=== PATIENT | male | born 1950 | race American Indian/Alaskan Native ===

== ENCOUNTER 2022-02-24 18:34 | Emergency (ER) | payer MEDICARE ==
[2022-02-25 09:09] VITALS: BP 157/86
[2022-02-25] MEDS ORDERED: IBUPROFEN 800 MG TAB PO ONE (09:54)
--- NOTE | 2022-02-25 10:00 | Emergency Department Report ---
ED Extremity Problem HPI - General Chief complaint: Pain General Stated complaint: HURT LEG Time Seen by Provider: 02/25/22 09:47 Source: patient Mode of arrival: Ambulatory Limitations: No Limitations - History of Present Illness Initial comments: 71-year male with a past medical history of hypertension and elevated cholesterol (on meds for both) present hospital complaining of left hamstring pain and knee pain for the past 4 days. Patient did have swelling for 1 day to the knee area that has since resolved. Pain is intermittent, aching, worse with ambulation and improved with rest. Patient denies any isolated calf tenderness, chest pain, shortness of breath, history of PE/DVT, or recent travel. Patient denies recent injury but states has been tussling with his grandson recently. Patient reports that pain is minimal at this time. Patient is a non-smoker Severity scale (0 -10): 8 - Related Data Previous Rx's Medication Instructions Recorded Last Taken Type Rivaroxaban [Xarelto Starter Pack] 1 each PO DAILY #1 pack 02/25/22 Unknown Rx Allergies Allergy/AdvReac Type Severity Reaction Status Date / Time No Known Allergies Allergy Verified 02/24/22 20:02 ED Review of Systems ROS: Stated complaint: HURT LEG Other details as noted in HPI Comment: All other systems reviewed and negative ED Past Medical Hx - Past Medical History Previous Medical History?: Yes Hx Hypertension: Yes Additional medical history: Elevated cholesterol - Surgical History Past Surgical History?: No - Social History Smoking Status: Never Smoker Substance Use Type: None - Medications Home Medications: Home Medications Medication Instructions Recorded Confirmed Last Taken Type Rivaroxaban [Xarelto Starter Pack] 1 each PO DAILY #1 pack 02/25/22 Unknown Rx ED Physical Exam - General Limitations: No Limitations - Other Other exam information: General: No acute distress Head: Atraumatic Eyes: normal appearance ENT: Moist mucous membranes Neck: Normal appearance, no midline tenderness Chest: Clear to auscultation bilaterally CV: Regular rate and rhythm Abdomen: Soft, normal bowel sounds, nontender, nondistended, no rebound or guarding Back: Normal inspection Extremity: Normal inspection, full range of motion, no calf tenderness, no tenderness to hamstring, quads, or knee. No swelling noted. 2+ DP pulse to the left foot. Neuro: Alert O x 3, no facial asymmetry, speech clear, no gross motor sensory deficit Psych: Appropriate behavior Skin: No rash ED Course Vital Signs 02/24/22 02/25/22 02/25/22 20:00 09:08 09:40 Temperature 98.8 F 97.6 F Pulse Rate 81 72 Respiratory 18 20 Rate Blood Pressure 126/76 157/86 [Left] O2 Sat by Pulse 98 99 95 Oximetry ED Medical Decision Making - Lab Data Result diagrams: 02/25/22 10:06 02/25/22 10:06 Lab Results 02/25/22 02/25/22 02/25/22 Range/Units 10:06 10:06 10:06 WBC 6.4 (4.5-11.0) K/mm3 RBC 4.17 (3.65-5.03) M/mm3 Hgb 11.8 (11.8-15.2) gm/dl Hct 36.2 (35.5-45.6) % MCV 87 (84-94) fl MCH 28 (28-32) pg MCHC 33 (32-34) % RDW 13.1 L (13.2-15.2) % Plt Count 237 (140-440) K/mm3 Lymph % (Auto) 19.1 (13.4-35.0) % Preston % (Auto) 4.9 (0.0-7.3) % Eos % (Auto) 1.7 (0.0-4.3) % Baso % (Auto) 1.3 (0.0-1.8) % Lymph # (Auto) 1.2 (1.2-5.4) K/mm3 Preston # (Auto) 0.3 (0.0-0.8) K/mm3 Eos # (Auto) 0.1 (0.0-0.4) K/mm3 Baso # (Auto) 0.1 (0.0-0.1) K/mm3 Seg Neutrophils % 73.0 H (40.0-70.0) % Seg Neutrophils # 4.7 (1.8-7.7) K/mm3 Sodium 140 (137-145) mmol/L Potassium 3.9 (3.6-5.0) mmol/L Chloride 105.4 (98-107) mmol/L Carbon Dioxide 26 (22-30) mmol/L Anion Gap 13 mmol/L BUN 12 (9-20) mg/dL Creatinine 1.1 (0.8-1.3) mg/dL Estimated GFR > 60 ml/min BUN/Creatinine Ratio 11 % Glucose 181 H (75-100) mg/dL Calcium 10.0 (8.4-10.2) mg/dL Total Creatine Kinase 109 (55-170) units/L - Radiology Data Radiology results: report reviewed Left lower extremity Doppler venous ultrasound INDICATION: Left leg pain FINDINGS: There is thrombus suggested within left common femoral vein. The popliteal vein, posterior tibial veins and peroneal veins appear normal. IMPRESSION: Thrombus suggested within the left common femoral vein. industrial ecology technician notified referring physician by my request.. - Medical Decision Making 71-year-old female presents to the hospital with left hamstring pain. ED work- up reveals left common femoral DVT. Patient does not have any swelling, chest pain, shortness of breath, hypoxia, or tachycardia. Patient is a candidate for outpatient treatment. 1 dose of Eliquis provided in the ED. Xarelto 30-day free trial offers available in the ED therefore Xarelto will be prescribed. Outpatient follow-up with primary care doctor and java consultant will be encouraged - Differential Diagnosis PAD, arthritis, muscle strain, rhabdo, DVT Critical Care Time: No Critical care attestation.: If time is entered above; I have spent that time in minutes in the direct care of this critically ill patient, excluding procedure time. ED Disposition Clinical Impression: Acute deep vein thrombosis of femoral vein Disposition: 01 HOME / SELF CARE / HOMELESS Is pt being admited?: No Does the pt Need Aspirin: No Condition: Stable Instructions: Deep Vein Thrombosis Additional Instructions: Take the medication as prescribed. STOP YOUR BABY ASPIRIN. Follow-up with your with both your primary care doctor and the java consultant provided. return if symptoms worsen as indicated by your discharge instructions and as discussed. Prescriptions: Rivaroxaban [Xarelto Starter Pack] 1 each PO DAILY #1 pack Referrals: your, primary care doctor [Other] - 3-5 Days SINGH ARMANDO MD [Referring] - 3-5 Days (java consultant/oncologist) Time of Disposition: 11:46
[2022-02-25 10:21] LABS: Basophils # (Auto) 0.1 K/mm3 (0.0-0.1); Basophils % (Auto) 1.3 % (0.0-1.8); Eosinophils # (Auto) 0.1 K/mm3 (0.0-0.4); Eosinophils % (Auto) 1.7 % (0.0-4.3); Hematocrit 36.2 % (35.5-45.6); Hemoglobin 11.8 gm/dl (11.8-15.2); Lymphocytes # (Auto) 1.2 K/mm3 (1.2-5.4); Lymphocytes % (Auto) 19.1 % (13.4-35.0); Mean Corpuscular HGB Conc 33 % (32-34); Mean Corpuscular Volume 87 fl (84-94); Monocytes # (Auto) 0.3 K/mm3 (0.0-0.8); Monocytes % (Auto) 4.9 % (0.0-7.3); Red Blood Count 4.17 M/mm3 (3.65-5.03); Red Cell Distribution Width 13.1 % (13.2-15.2)
[2022-02-25 10:34] LABS: BUN/Creatinine Ratio 11; Blood Urea Nitrogen 12 mg/dL (9-20); Hemolysis Index 6
--- NOTE | 2022-02-25 11:04 | Vascular Lab Report ---
Left lower extremity Doppler venous ultrasound INDICATION: Left leg pain FINDINGS: There is thrombus suggested within left common femoral vein. The popliteal vein, posterior tibial veins and peroneal veins appear normal. IMPRESSION: Thrombus suggested within the left common femoral vein. missile technician notified referring physician by my request.. Signer Name: Sandeep Colon MD Signed: 02/25/2022 11:00 AM Workstation Name: [id number]
[2022-02-25] MEDS ORDERED: APIXABAN 5 MG TAB PO ONE (11:16)
[2022-02-25 11:31] LABS: Platelet Count 237 K/mm3 (140-440)
== END 2022-02-25 12:01 | disposition home or self-care (01) ==
LOC: ED 18:34
DX: I82.412 Acute embolism and thrombosis of left femoral vein (principal); I10 Essential (primary) hypertension; E78.00 Pure hypercholesterolemia, unspecified
CPT/HCPCS: 36415; 80048; 82550; 85025; 99284